=== PATIENT | female | born 1940 | race Caucasian/White ===

== ENCOUNTER 2016-12-27 12:45 | Inpatient (IN) | payer OTHER ==
[~2016-12-27] VITALS: Ht 167.6 cm; Wt 75.4 kg
--- NOTE | ~2016-12-27 | EKG ---
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
--- NOTE | ~2016-12-27 | EKG ---
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1940 Requested By: Karin Monsalve Order Number: [id number] MD: Bola Macias Measurements Intervals [place] Rate: 111 P: ND: QRS: 63 QRSD: 100 T: -85 QT: 330 QTc: 449 Interpretive Statements Atrial fibrillation Paired ventricular premature complexes Repol abnrm suggests ischemia, inferior leads Baseline wander in lead(s) I,II,aVR No previous ECG available for comparison Electronically Signed On 12-31-2016 9:08:20 CDT by Bola Macias [email or web address] <ELECTRONICALLY SIGNED> By: Bola Macias MD, FACC 12/31/16 0908 1251 1251 Bola Macias MD, [facility] /EPI
--- NOTE | ~2016-12-27 | HC ---
[facility] [place] [address] CONSULTATION Name: SUGEY ROJAS Andres Room #: 430-P [facility] IN M.R.#: [id number] Admission: 12/27/16 Attend Phys: Tye Dsouza MD Discharge: 12/31/16 Date of : 39 Report #: [id number] THIS REPORT FOR: //name// CC: Tye Holmanie Mannie REASON FOR CONSULTATION: Atrial fibrillation. 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 The patient has been having issues with recurrent altered mental status and was diagnosed with possible dementia. She has more altered yesterday and there was concern that she may have had some seizure activity. I have been asked to see her, there was some bradycardia noted on telemetry. I looked at all her telemetry, since she has been here. There was a period of time where she was in atrial fibrillation with some of in the middle of the night some of her rates were in the 30s to 40s range while she was sleeping. However, her rates are otherwise within normal limits and she is converted to sinus rhythm. She denies any chest pain. She denies shortness of breath. She denies PND or orthopnea. She denies presyncope or syncope. REVIEW OF SYSTEMS: A 12-point review of systems was performed and was negative other than I mentioned above. PAST MEDICAL HISTORY: 1. Dementia. 2. Mechanical mitral valve. 3. Hypertension. 4. Atrial fibrillation. SOCIAL HISTORY: Does not smoke. FAMILY HISTORY: Noncontributory. ALLERGIES: PENICILLIN, SULFA, CODEINE, HYDROCODONE. MEDICATIONS: Include digoxin 0.25, lisinopril 10, quetiapine, Coumadin, bisoprolol, simvastatin, Aldactone, aspirin. PHYSICAL EXAMINATION: VITAL SIGNS: Temperature is 36.4, pulse 94, respiration 14, blood pressure 140/81, sats 95%. LABORATORY DATA: White cell count is 9.5, hemoglobin 12.7, platelets 192. INR is 2.2. Troponin is negative x 2. Chemistries: Sodium 128, potassium 4.1, BUN 29, creatinine 1.2. LFTs within normal limits, albumin 3.2. Chest x-ray shows no acute process with enlarged cardiac silhouette. A CT of head, she has some [facility] [address] [place] [address] CONSULTATION Name: SUGEY ROJAS Room #: 430-P [facility]#: [id number] Admission: 12/27/16 Attend Phys: Tye Dsouza MD Discharge: 12/31/16 Date of : 39 Report #: [id number] remote prior strokes. IMPRESSION: In summary, the patient is a 76-year-old with a history of atrial fibrillation and mechanical mitral valve. Reviewing her telemetry, there is no significant bradycardia. I do not believe that any of this warrants pacemaker. In terms of her mitral valve, we will repeat echocardiogram to evaluate the valve function and as well as to evaluate her left ventricular function. We will continue to follow. <ELECTRONICALLY SIGNED> By: Juan Melton MD 01/02/17 1106 1142 1315 Juan Melton MD /nt
--- NOTE | ~2016-12-27 | EEG ---
[facility] [place] [address] ELECTROENCEPHALOGRAM Name: SUGEY ROJAS Room #: 430-P [facility] IN M.R.#: [id number] Admission: 12/27/16 Attend Phys: Tye Dsouza MD Discharge: 12/31/16 Date of : 39 Report #: [id number] THIS REPORT FOR: //name// CC: Tye Dsouza [place] DATE OF SERVICE: 12/28/2016 This patient is being evaluated for the possibility of seizure. EEG was done by placing the electrodes by standard 10-20 system of electrode placement. Both referential and sequential montages were used for recording. Background activity in this patient's EEG is about 8 Hz and 30 microvolt. It is intermixed with theta range slowing on both sides. During part of the EEG, the patient appeared to be slow asleep and that is associated with bilateral slowing on both sides. No active epileptiform activity was noted. IMPRESSION: This patient's EEG is intermixed with theta range slowing on both sides. That is a nonspecific abnormality, which can occur with encephalopathy, effect of psychotropic medication, dementia, postictal period, etc. Clinical correlation is recommended. Heart is irregular consistent with patient's history of cadiac irregularity which is being addressed as I understand Thank you very much for this referral. <ELECTRONICALLY SIGNED> By: Toribio Way MD 01/01/17 0737 1712 1820 MD chanel Jimenez
--- NOTE | ~2016-12-27 | EKG ---
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
--- NOTE | ~2016-12-27 | 2DMMODE ---
[facility] [address] [facility] [place] [address] 2 D/M-MODE ECHOCARDIOGRAM Name: SUGEY ROJAS Room #: 430-P [facility] IN [facility].#: [id number] Admission: 12/27/16 Attend Phys: Tye Dsouza, Discharge: 12/31/16 Date of : 39 Date of Service: 12/30/16 1313 Report #: [id number] THIS REPORT FOR: //name// APPROVED REPORT Study performed: 12/30/2016 12:00:29 EXAM: Comprehensive 2D, Doppler, and color-flow Echocardiogram Patient Location: Bedside Room #: 430 Status: routine BSA: 1.85 HR: 70 bpm BP: 168/79 mmHg Other Information Study Quality: Adequate Indications Atrial Fibrillation Hypertension/HDD Mechanical Mitral Valve. 2D Dimensions RVDd: 52.85 mm LVEF(%): 50.18 (>50%) IVSd: 9.94 (7-11mm) LVOT Diam: 19.75 (18-24mm) LVDd: 43.52 mm PWd: 10.24 (7-11mm) Ascending Ao: 32.55 (22-36mm) LVDs: 32.51 (25-40mm) Aortic Root: 31.21 mm IVC: 25.00 mm Robbins's LVEF: 50.18 % Volumes Left Atrial Volume (Systole) Single Plane 4CH: 149.40 mL Single Plane 2CH: 124.55 mL LA ESV Index: 81.00 mL/m2 Aortic Valve AoV Peak Kwasi.: 1.21 m/s AO Peak Gr.: 5.92 mmHg LVOT Max P.86 mmHg LVOT Max V: 0.83 m/s STEPHIE Vmax: 2.10 cm2 Mitral Valve MV Peak Gr.: 9.12 mmHg [facility] [place] [address] 2 D/M-MODE ECHOCARDIOGRAM Name: SUGEY ROJAS Room #: 430-P [facility]..#: [id number] Admission: 12/27/16 Attend Phys: Tye Dsouza, Discharge: 12/31/16 Date of : 39 Date of Service: 12/30/16 1313 Report #: [id number] MV Mean Gr.: 2.27 mmHg MV Decel. Time: 148.13 ms MV E Max Kwasi.: 1.41 m/s MV Max Kwasi.: 1.51 m/s MV Mean Kwasi.: 0.62 m/s MV VTI: 315.96 mm Pulmonary Valve PV Peak Kwasi.: 0.79 m/s PV Peak Gr.: 2.48 mmHg Tricuspid Valve TR Peak Kwasi.: 2.60 m/s RAP Estimate: 15.00 mmHg TR Peak Gr.: 27.24 mmHg PA Pressure: 42.00 mmHg Left Ventricle The left ventricle is normal size. There is normal left ventricular wall thickness. The left ventricular systolic function is normal. The left ventricular ejection fraction is within the normal range. LVEF is 50-55%. This study is not technically sufficient to allow evaluation of the LV diastolic function due to atrial fibrillation. Right Ventricle Right ventricle is dilated. The right ventricular systolic function is normal. Atria Left atrium is dilated. Right atrium is dilated. Aortic Valve The aortic valve is normal in structure. Aortic valve is calcified. No aortic regurgitation is present. There is no aortic valvular stenosis. Mitral Valve There is a mechanical mitral valve. The prosthetic mitral valve is not well visualized due to imaging artifacts from the prosthesis. There is no mitral valve regurgitation noted. Tricuspid Valve The tricuspid valve is normal in structure. There is moderate tricuspid regurgitation. The right atrial pressure is estimated at 15 mmHg. There is moderate pulmonary hypertension[place] [address] 2 D/M-MODE ECHOCARDIOGRAM Name: SUGEY ROJAS Room #: 430-P [facility]#: [id number] Admission: 12/27/16 Attend Phys: Tye Dsouza, Discharge: 12/31/16 Date of : 39 Date of Service: 12/30/16 1313 Report #: [id number] The pulmonary valve is normal in structure. Trace pulmonic regurgitation. Great Vessels The aortic root is normal in size. The inferior vena cava is dilated with no inspiratory collapse. Pericardium There is no pericardial effusion. <Conclusion> The left ventricle is normal size. LVEF is 50-55%. Right ventricle is dilated. The right ventricular systolic function is normal. Left atrium is dilated. Right atrium is dilated. The aortic valve is normal in structure. Aortic valve is calcified. There is no aortic valvular stenosis. There is a mechanical mitral valve. The prosthetic mitral valve is not well visualized due to imaging artifacts from the prosthesis. The tricuspid valve is normal in structure. There is moderate tricuspid regurgitation. The right atrial pressure is estimated at 15 mmHg. There is moderate pulmonary hypertension. The inferior vena cava is dilated with no inspiratory collapse. <ELECTRONICALLY SIGNED> By: Kuldip Rosenberg MD 12/30/16 1313 12 131 Kuldip Rosenberg MD /INF
[~2016-12-27 12:45] MED LIST: ACETAMINOPHEN325 M1 PO; ALDACTONE25 MG PO; APAP500 PO; ASPIRIN EC81 M1; ASPIRIN81 M2 PO; ATIVAN0.5 MG PO; BACTROBAN NASAL1 GM NS; BISOPROLOL FUMAR5 MG PO; CALCIUM 500 +1 EAC5 PO; CALCIUM OYSTER500 MG; CEFTIN 250 MG250 MG PO; CEPHALEXIN 500500 M2 PO; CLONIDINE0.1 PO; COLACE100 MG PO; CORTEF5 MG OR; CORTEF5 MG PO; COUMADIN 2 MG TA2 M1 PO; COUMADIN 3 MG TA3 MG PO; DEEP SEA NASAL44 M1 NASAL; DEEP SEA NASAL44 ML NS; DEPAKOTE 250MG250 M1 PO; DILTIAZEM ER120 M1 PO; DOXAZOSIN MESYLA1 MG PO; DOXAZOSIN MESYLA2 MG PO; FUROSEMIDE 20 M20 M1 PO; GLUCOPHAGE500 MG PO; LANOXIN 0.250.25 MG PO; LASIX 40 MG TAB40 M2 PO; MICARDIS40 MG OR; MIRALAX255 GM OR; NASAL SPRAY EXT30 ML NS; ONE DAILY HEAL1 EACH PO; PRINIVIL20 MG PO; RAPAFLO8 MG PO; REQUIP 1 MG TABL1 M1 PO; ZOCOR 10 MG TAB10 MG PO
[2016-12-27 12:46] VITALS: BP 121/68
[2016-12-27 13:22] LABS: HEMOGLOBIN 12.9 gm/dL (12.0-15.0); MCH 30.4 pg (26.0-34.0); MCHC 33.1 g/dL (28.0-37.0); PLATELET COUNT 222 thou/uL (150-400); RBC 4.24 mil/uL (4.20-5.00); WBC 17.3 thou/uL (4.0-11.0)
[2016-12-27 13:23] LABS: MANUAL DIFF YES
[2016-12-27 13:29] LABS: URINE BILIRUBIN NEGATIVE (Negative); URINE BLOOD 1+ (Negative); URINE COLOR YELLOW; URINE GLUCOSE-RANDOM* TRACE (Negative); URINE KETONES NEGATIVE (Negative); URINE LEUKOCYTES-REFLEX NEGATIVE (Negative); URINE PROTEIN (DIPSTICK) 2+ (Negative); URINE SPECIFIC GRAVITY >= 1.030 (1.003-1.035); URINE UROBILINOGEN 0.2 E.U./dl (0.2-1.0)
[2016-12-27 13:31] LABS: ANION GAP 13 mmol/L (7-16); BUN 32 mg/dL (7-18); CALCIUM 9.4 mg/dL (8.5-10.1); CHLORIDE 93 mmol/L (98-107); CO2 22 mmol/L (21-32); CREATININE 1.7 mg/dL (0.6-1.0); GLUCOSE 229 mg/dL (74-106); POTASSIUM 4.1 mmol/L (3.5-5.1); SODIUM 128 mmol/L (136-145)
[2016-12-27 13:35] LABS: INR 2.1
[2016-12-27 13:37] LABS: APTT 37.4 Seconds (24.5-32.8); PROTIME 21.7 Seconds (9.3-11.4)
[2016-12-27 13:39] LABS: ABSOLUTE NEUTROPHILS 14.5 thou/uL (1.4-8.2); PLATELET ESTIMATE NORMAL; TOTAL CELL COUNT 100
[2016-12-27 13:40] LABS: TROPONIN-I < 0.04 ng/mL (<0.04-0.07)
[2016-12-27 13:41] LABS: CASTS None Seen /LPF (None Seen); CRYSTALS None Seen /LPF (None Seen); SQUAMOUS 0-3 Few /LPF (0-3); URINE RBC 3-10 Few /HPF (0-2); URINE WBC-REFLEX None Seen /HPF (0-5)
[2016-12-27] MEDS ORDERED: DIGOXIN250 MCG PO (14:13)
[2016-12-27] MEDS ORDERED: LISINOPRIL10 MG PO (14:14)
[2016-12-27] MEDS ORDERED: COUMADIN 2 MG TA2 M1 PO (14:15)
[2016-12-27] MEDS ORDERED: NEURONTIN 300300 M1 PO (14:15)
[2016-12-27] MEDS ORDERED: ZOCOR20 MG PO (14:16)
[2016-12-27] MEDS ORDERED: BISOPROLOL FUMAR5 MG PO (14:17)
[2016-12-27] MEDS ORDERED: ALDACTONE50 MG PO (14:18)
[2016-12-27] MEDS ORDERED: SEROQUEL 25 MG25 M1 PO (14:18)
[2016-12-27] MEDS ORDERED: CALCIUM 500 +1 EAC5 PO (14:20)
[2016-12-27] MEDS ORDERED: ASPIR 8181 M1 PO (14:20)
[2016-12-27] MEDS ORDERED: CENTRUM SILVER1 EAC4 PO (14:21)
[2016-12-27] MEDS ORDERED: IRON325 PO (14:21)
[2016-12-27 15:31] VITALS: BP 127/73
[2016-12-27 16:08] VITALS: BP 158/67
[2016-12-27 16:40] VITALS: BP 144/73
[2016-12-27 20:00] VITALS: BP 111/62
[2016-12-28 03:20] LABS: HEMATOCRIT 32.6 % (37.0-47.0); MCH 30.7 pg (26.0-34.0); MCHC 33.4 g/dL (28.0-37.0); MCV 91.9 fL (80.0-100.0); RBC 3.55 mil/uL (4.20-5.00); RDW 13.1 % (10.5-14.5); WBC 12.3 thou/uL (4.0-11.0)
[2016-12-28 03:28] LABS: HEMOGLOBIN 10.9 gm/dL (12.0-15.0)
[2016-12-28 03:32] LABS: INR 2.3; PROTIME 22.8 Seconds (9.3-11.4)
[2016-12-28 03:38] LABS: ALBUMIN 3.2 g/dL (3.4-5.0); CALCIUM 8.1 mg/dL (8.5-10.1); CREATININE 1.2 mg/dL (0.6-1.0); POTASSIUM 4.1 mmol/L (3.5-5.1); TOTAL BILIRUBIN 0.4 mg/dL (<0.1-1.0); TOTAL PROTEIN 6.3 g/dL (6.4-8.2)
[2016-12-28 04:00] VITALS: BP 128/62
[2016-12-28 04:20] LABS: TSH 2.27 uIU/mL (0.358-3.740)
[2016-12-28 05:13] LABS: FOLIC ACID 34.5 ng/mL (8.6-58.9)
[2016-12-28 08:00] VITALS: BP 132/60
[2016-12-28 18:00] VITALS: BP 149/79
[2016-12-28 20:00] VITALS: BP 142/75
[2016-12-29 03:53] LABS: INR 2.2; PROTIME 22.7 Seconds (9.3-11.4)
[2016-12-29 05:30] VITALS: BP 148/78
[2016-12-29 08:03] VITALS: BP 140/81
[2016-12-29 11:36] LABS: HEMATOCRIT 37.9 % (37.0-47.0); HEMOGLOBIN 12.7 gm/dL (12.0-15.0); MCH 31.3 pg (26.0-34.0); MCHC 33.5 g/dL (28.0-37.0); MCV 93.3 fL (80.0-100.0); RBC 4.06 mil/uL (4.20-5.00); RDW 13.1 % (10.5-14.5); WBC 9.5 thou/uL (4.0-11.0)
[2016-12-29 11:46] LABS: CALCIUM 8.7 mg/dL (8.5-10.1); CREATININE 1.2 mg/dL (0.6-1.0)
[2016-12-29 15:45] VITALS: BP 137/81
[2016-12-29 20:00] VITALS: BP 145/80
[2016-12-30 04:30] VITALS: BP 164/87
[2016-12-30 05:10] LABS: INR 1.9; PROTIME 19.1 Seconds (9.3-11.4)
[2016-12-30 08:29] VITALS: BP 168/79
[2016-12-30 08:53] VITALS: BP 168/79
[2016-12-30 18:36] VITALS: BP 153/91
[2016-12-30 20:38] VITALS: BP 172/84
[2016-12-31 04:48] VITALS: BP 175/95
[2016-12-31 05:02] LABS: INR 1.9; PROTIME 19.1 Seconds (9.3-11.4)
[2016-12-31 08:00] VITALS: BP 169/93
[2016-12-31 12:07] LABS: ALPHA TOCOPHEROL 14.2 mg/L (6.5-21.5)
[2016-12-31] MEDS ORDERED: COUMADIN 5 MG TA5 M1 PO (15:03)
[2016-12-31] MEDS ORDERED: ENOXAPARIN80 MG/0.1 SUBQ (15:04)
[2016-12-31] MEDS ORDERED: KEPPRA 500 MG500 M1 PO (15:06)
== END 2016-12-31 16:13 | DRG 682 ==
LOC: ER 12:45 → 4E 15:17 → EROBS 15:17 → 4E 16:11
PROVIDERS: Emergency Medicine; Internal Medicine; Psychiatry & Neurology Neurology
DX: N17.9 Acute kidney failure, unspecified (principal); G93.40 Encephalopathy, unspecified; E87.1 Hypo-osmolality and hyponatremia; R56.9 Unspecified convulsions; G31.83 Neurocognitive disorder with Lewy bodies; G30.9 Alzheimer's disease, unspecified; F01.50 Vascular dementia, unspecified severity, without behavioral disturbance, psychotic disturbance, mood disturbance, and anxiety; F02.80 Dementia in other diseases classified elsewhere, unspecified severity, without behavioral disturbance, psychotic disturbance, mood disturbance, and anxiety; Z66 Do not resuscitate; G25.81 Restless legs syndrome; I10 Essential (primary) hypertension; I48.91 Unspecified atrial fibrillation; Z95.2 Presence of prosthetic heart valve; Z90.710 Acquired absence of both cervix and uterus; Z79.01 Long term (current) use of anticoagulants; Z87.891 Personal history of nicotine dependence; Z79.899 Other long term (current) drug therapy; Z88.0 Allergy status to penicillin; Z88.2 Allergy status to sulfonamides; Z88.5 Allergy status to narcotic agent; Z88.8 Allergy status to other drugs, medicaments and biological substances
CPT/HCPCS: 10183

== ENCOUNTER 2017-01-02 11:46 | Inpatient (IN) | payer OTHER ==
[2017-01-02] VITALS (24 sets, daily range): BP systolic 92–129; BP diastolic 39–89
[~2017-01-02] VITALS: Ht 165.1 cm; Wt 82.8 kg
--- NOTE | ~2017-01-02 | HC ---
[facility] [place] [address] CONSULTATION Name: SUGEY ROJAS Andres Room #: 243-P [facility] IN .R.#: [id number] Admission: 01/02/17 Attend Phys: Cralos Alberto Hernandez MD Discharge: Date of : 39 Report #: [id number] THIS REPORT FOR: //name// CC: BURT Hernandez DATE OF SERVICE: 01/02/2017 REASON FOR CONSULTATION: Anemia and mechanical heart valve, on anticoagulation. HISTORY OF PRESENT ILLNESS: The patient is a 76-year-old female who has a history of mechanical mitral valve as well as atrial fibrillation who I recently saw when she was hospitalized for some altered mental status. At that time, she was having episodes of atrial fibrillation with variable rates and some bradycardia. As such, I recommended discontinuing her digoxin and continuing with beta esthela therapy. Prior to discharge, she was noted to be supratherapeutic on her INR at 1.9, so I obtained a pharmacy consult and have them up her dose. I also recommended that she be bridged with Lovenox until she was within therapeutic range of 2.5-3.5. She presented back to the hospital yesterday with increased fatigue and found to be anemic and a CT scan of the abdomen shows that she has abdominal wall hematoma, which is likely from the Lovenox shots. I was asked to see her for further evaluation. PAST MEDICAL HISTORY: 1. Mechanical mitral valve, on warfarin. 2. Atrial fibrillation. 3. Hypertension. SOCIAL HISTORY: Not a smoker. FAMILY HISTORY: Noncontributory. ALLERGIES: Reviewed. MEDICATIONS: Reviewed. REVIEW OF SYSTEMS: GENERAL: No fevers or chills. HEENT: No blurred vision. CARDIOVASCULAR: No chest pain. PULMONARY: No productive cough. GASTROINTESTINAL: No nausea or vomiting. She has abdominal wall tenderness at the site of prior injections. GENITOURINARY: No dysuria. MUSCULOSKELETAL: No myalgias or arthralgias. ENDOCRINE: No heat or cold intolerance. [facility] [address] [place] [address] CONSULTATION Name: SUGEY ROJAS Andres Room #: [address] [place] [address] [place] [facility].#: [id number] Admission: 01/02/17 Attend Phys: Carlos Alberto Hernandez MD Discharge: Date of : 39 Report #: [id number] NEUROLOGIC: No focal weakness. PHYSICAL EXAMINATION: VITAL SIGNS: Temperature 36.6, pulse 82, respirations 18, blood pressure 106/43, and sats 99%. GENERAL: She is in no acute distress, alert and oriented x3. HEENT: Oropharynx clear. NECK: Supple. No thyromegaly. HEART: Irregularly irregular with no murmurs, rubs or gallops. LUNGS: Clear to auscultation bilaterally. ABDOMEN: Soft, nontender, nondistended with no hepatosplenomegaly. There is some tenderness in the left quadrant. There is an area of tightness there, which is likely where the hematoma is located, but there is no ecchymosis noted EXTREMITIES: There is no clubbing, cyanosis, or edema. NEUROLOGIC: Cranial nerves 2-12 are intact. LABS: Sodium 126, potassium 4.6, BUN 26, and creatinine 1.8. Troponin is normal. Coags: INR was 2.1. PTT was 59.5. Hemoglobin was 5.9. Platelets were 225. ASSESSMENT: 1. Symptomatic anemia secondary to intraabdominal bleed, likely related to the Lovenox shots causing trauma. 2. Mechanical mitral valve. 3. Hypercoagulable state. 4. Atrial fibrillation. 5. Acute renal failure. In summary, the patient is a 76-year-old with AFib, mechanical mitral valve, presenting with an abdominal wall hematoma, which is likely due to the Lovenox shots. Obviously, we will stop the Lovenox shots and we recommend transfusing as needed. In terms of her INR, it is only 2.1 and I am not in favor reversing this as we are at some risk of mitral valve thrombosis. If INR starts to rise, then perhaps some oral vitamin K can be used. In terms of her AFib, we will continue with her rate control medications and we will continue to follow. By: 1033 1258 Juan Melton MD /nt
--- NOTE | ~2017-01-02 | HC ---
[facility] [place] [address] CONSULTATION Name: CRYSTALSUGEY Andres Room #: 243-P [facility] IN ..#: [id number] Admission: 01/02/17 Attend Phys: Carlos Alberto Hernandez MD Discharge: 01/08/17 Date of : 39 Report #: [id number] THIS REPORT FOR: //name// CC: BURT MYKE Hernandez DATE OF SERVICE: 01/03/2017 HISTORY OF PRESENT ILLNESS: I have been asked to evaluate this 76-year-old lady who presented back to the hospital with worsening abdominal pain and a drop of her hemoglobin to 5.9 at the time of admission. More recently, the patient had been hospitalized. She was in atrial fibrillation with hypertension and has a mechanical aortic valve. The patient had been placed on Coumadin and increasing daily to 5 mg daily and with Lovenox bridging of 80 mg b.i.d. at her nursing facility. She returned complaining of worsening abdominal pain and discomfort without any change in gastrointestinal function. She denies vomiting. The patient by CT scanning has a developing large left retroperitoneal hematoma. PAST MEDICAL HISTORY: Consistent with Lewy's body dementia, hypertension, mitral valve replacement, atrial fibrillation, hysterectomy, tonsillectomy and possible early-onset diabetes. MEDICATIONS: The patient takes multiple medications: Lisinopril, Zocor, gabapentin, aspirin 81 mg daily, spironolactone and multivitamins. She is on digoxin as well as Coumadin 5 mg daily. ALLERGIES: Reported are CODEINE, HYDROCODONE, PENICILLIN and SULFA. SOCIAL HISTORY: . Daughter and at the bedside reports to Dr. 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 SOCIAL HISTORY: She quit smoking greater than one year ago, smoked half pack of cigarettes for 30 years. Does not use alcohol. REVIEW OF SYSTEMS: A 10-point review of systems essentially noncontributory except for the worsening abdominal pain. PHYSICAL EXAMINATION: GENERAL: Reveals a lady who is resting comfortably in the ICU. VITAL SIGNS: Stable. HEENT: Pupils equal, round and reactive to light. NEUROLOGICAL: She is alert, conversant. Daughter at the bedside. LUNGS: Clear at the bases bilaterally. CARDIOVASCULAR: Irregular rhythm. ABDOMEN: Marked distention in the left with a mass-like effect in the left lower abdomen. [facility] [address] [place] [address] CONSULTATION Name: SUGEY ROJAS Room #: 243-P [facility] IN M.R.#: [id number] Admission: 01/02/17 Attend Phys: Carlos Alberto Hernandez MD Discharge: 01/08/17 Date of : 39 Report #: [id number] RECTAL: Not performed. DIAGNOSTIC IMPRESSION: Large left retroperitoneal hematoma, no surgical therapy is indicated and I would correct the coagulation disorder and consider the possibility of Interventional Radiology for embolization of the inferior epigastric artery and if there is worsening in progressing. Only indication for operation is breaking through into the intraperitoneal free space. This is not present on the recent completed CT scan. Followup is indicated. Thank you for allowing us to participate in her care. By: 1633 0230 Cruzito Campuzano MD, FACS /nt
--- NOTE | ~2017-01-02 | HC ---
[facility] [place] [address] CONSULTATION Name: SUGEY ROJAS Andres Room #: 243-P [facility] IN .R.#: [id number] Admission: 01/02/17 Attend Phys: Carlos Alberto Hernandez MD Discharge: Date of : 39 Report #: [id number] THIS REPORT FOR: //name// CC: BURT Hernandez DATE OF SERVICE: 01/04/2017 REASON FOR CONSULTATION: Hyponatremia and elevated creatinine. HISTORY OF PRESENT ILLNESS: This 76-year-old patient was recently discharged 5 days ago after a hospitalization for confusion. At that time, she had a mild increase in her serum creatinine and was hospitalized for several days and discharged on 12/31/2016. At that time, her serum creatinine level had risen to 1.7 from a baseline that appears to be closer to 0.8 or 1. She was now readmitted after a massive left abdominal wall spontaneous hematoma with retroperitoneal extension and hypotension. Creatinine jsesica back up from 1.2 to 1.8 again, now down to 1.3. Since hospitalization, the serum sodium has dropped from a level of 136 last admission down to 126 and now 120, and Renal consultation is called. 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 She has chronic atrial fibrillation. Past medical history also includes intermittent episodes of confusion, possibly psychiatric in nature, also with a possible diagnosis of Lewy body dementia, and it is unclear as to how that diagnosis was made. There was a question of seizure-like activity as well. She also has some glucose intolerance, history of hypertension as well as a prior hysterectomy. DISCHARGE MEDICATIONS FROM THAT RECENT HOSPITALIZATION: Included aspirin, lisinopril 10 mg daily, gabapentin 300 mg daily, simvastatin 20 mg daily, bisoprolol 5 mg daily, Seroquel 25 mg p.r.n., calcium carbonate, iron, multiple vitamins and both Lovenox and warfarin as well as Keppra 500 mg twice daily. SOCIAL HISTORY: Not a cigarette smoker. FAMILY HISTORY: Please refer to old charts. REVIEW OF SYSTEMS: GENERAL: She says she is feeling okay today. She feels a little bit swollen. EYES: Her vision is okay. ENT: Hearing okay. Swallows okay. Denies mouth ulcers. ENDOCRINE: Glucose intolerance as mentioned. RESPIRATORY: She denies shortness of breath or pleuritic pain. CARDIAC: Denies angina. Does get leg swelling on occasion. Has been on [facility] [address] [place] [address] CONSULTATION Name: SUGEY ROJAS Room #: [facility] IN [facility]#: [id number] Admission: 01/02/17 Attend Phys: Carlos Alberto Hernandez MD Discharge: Date of : 39 Report #: [id number] chronic diuretics. GASTROINTESTINAL: Appetite has been fair to poor. GENITOURINARY: Denies dysuria or hematuria. NEUROLOGICAL: She has had the spells as mentioned intermittently with confusion and possible seizure, and she returns to fairly normal mental status in between. PHYSICAL EXAMINATION: GENERAL: This is a reasonably well-appearing, comfortable patient in no distress or discomfort. SKIN: Reasonably good turgor. HEENT: Extraocular movements are full. Vision is intact. Hearing is intact. Mucous membranes are moist. Tongue and buccal mucosa benign. NECK: Veins are flat. CHEST: Shows a couple of rhonchi at the right base. HEART: Irregular and tachycardic. ABDOMEN: Shows a very dense swollen mass, very tender, very firm and hard in the mid and left lower abdomen. EXTREMITIES: Show no edema. ASSESSMENT AND PLAN: 1. Acute kidney injury. Creatinine is up. Her bladder is being somewhat compressed, and some obstructive component may be at work here. We will have to be watchful and may have to do a renal sonogram, and possibly even decompression might be indicated. We will watch her creatinine carefully. 2. Hyponatremia. She has had poor p.o. intake. We are doing an assessment of her urinary sodium, creatinine and osmolarity, which will be of some help. She is not on any particular medications that would predispose the hyponatremia. There may be a component of syndrome of inappropriate antidiuretic hormone from her central nervous system disease. I do not see any pulmonary disease that would be responsible, and it does not look like she has gotten hypotonic fluids, although it is not entirely easy to tell. 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 4. Large intraabdominal and retroperitoneal hematoma. 5. Atrial fibrillation with rapid ventricular rate. 6. Intermittent confusion episode. <ELECTRONICALLY SIGNED> By: Armani Vargas MD 01/07/17 1144 0915 0044 Armani Vargas MD /nt
[~2017-01-02 11:46] MED LIST changes: +ALDACTONE50 MG PO; +ASPIR 8181 M1 PO; +CENTRUM SILVER1 EAC4 PO; +COUMADIN 5 MG TA5 M1 PO; +DIGOXIN250 MCG PO; +ENOXAPARIN80 MG/0.1 SUBQ; +IRON325 PO; +KEPPRA 500 MG500 M1 PO; +LISINOPRIL10 MG PO; +NEURONTIN 300300 M1 PO; +SEROQUEL 25 MG25 M1 PO; +ZOCOR20 MG PO
[2017-01-02] MEDS ORDERED: ENOXAPARIN80 MG/0.1 SUBQ (11:57)
[2017-01-02] MEDS ORDERED: ALDACTONE25 MG PO (11:57)
[2017-01-02 12:31] LABS: MCH 30.9 pg (26.0-34.0); MCHC 33.4 g/dL (28.0-37.0); MCV 92.5 fL (80.0-100.0); PLATELET COUNT 225 thou/uL (150-400); RBC 1.91 mil/uL (4.20-5.00); RDW 13.1 % (10.5-14.5); WBC 26.1 thou/uL (4.0-11.0)
[2017-01-02 12:32] LABS: MANUAL DIFF YES
[2017-01-02 12:34] LABS: HEMOGLOBIN 5.9 gm/dL (12.0-15.0)
[2017-01-02 12:35] LABS: HEMATOCRIT 17.7 % (37.0-47.0)
[2017-01-02 12:45] LABS: INR 2.1
[2017-01-02 12:47] LABS: APTT 59.5 Seconds (24.5-32.8); PROTIME 20.8 Seconds (9.3-11.4)
[2017-01-02 13:04] LABS: METAMYELOCYTES 1 %; TOTAL CELL COUNT 100
[2017-01-02 13:06] LABS: ABSOLUTE NEUTROPHILS 21.7 thou/uL (1.4-8.2); ANISOCYTOSIS SLIGHT; MYELOCYTES 1 %; POLYCHROMASIA OCCASIONAL
[2017-01-02 13:44] LABS: ANION GAP 11 mmol/L (7-16); BUN 29 mg/dL (7-18); CALCIUM 8.8 mg/dL (8.5-10.1); CHLORIDE 94 mmol/L (98-107); CO2 21 mmol/L (21-32); CREATININE 1.8 mg/dL (0.6-1.0); GLUCOSE 162 mg/dL (74-106); POTASSIUM 4.6 mmol/L (3.5-5.1); SODIUM 126 mmol/L (136-145)
[2017-01-02 13:45] LABS: TROPONIN-I < 0.04 ng/mL (<0.04-0.07)
[2017-01-02 14:16] LABS: URINE BILIRUBIN NEGATIVE (Negative); URINE BLOOD TRACE (Negative); URINE GLUCOSE-RANDOM* NEGATIVE (Negative); URINE KETONES NEGATIVE (Negative); URINE NITRITE NEGATIVE (Negative); URINE PROTEIN (DIPSTICK) 2+ (Negative); URINE SPECIFIC GRAVITY >= 1.030 (1.003-1.035); URINE UROBILINOGEN 0.2 E.U./dl (0.2-1.0)
[2017-01-02 14:19] LABS: URINE COLOR YELLOW
[2017-01-02 14:28] LABS: HYALINE CASTS 0-3 Few /LPF (None Seen); SQUAMOUS 0-3 Few /LPF (0-3); URINE WBC 0-5 Rare /HPF (0-5)
[2017-01-02 14:29] LABS: AMORPHOUS URATES Moderate /LPF (None Seen); BACTERIA 1-9 Few /HPF (None Seen); URINE RBC 0-2 Rare /HPF (0-2)
[2017-01-03] VITALS (40 sets, daily range): BP systolic 100–159; BP diastolic 51–130
[2017-01-03 01:11] LABS: GLYCOHEMOGLOBIN (HGB A1C) 6.6 % (4.8-5.6)
[2017-01-03 01:17] LABS: HEMATOCRIT 22.3 % (37.0-47.0); HEMOGLOBIN 7.7 gm/dL (12.0-15.0); MCH 31.2 pg (26.0-34.0); MCHC 34.6 g/dL (28.0-37.0); MCV 90.4 fL (80.0-100.0); PLATELET COUNT 195 thou/uL (150-400); RBC 2.46 mil/uL (4.20-5.00); RDW 13.6 % (10.5-14.5); WBC 25.8 thou/uL (4.0-11.0)
[2017-01-03 01:25] LABS: MANUAL DIFF YES
[2017-01-03 02:24] LABS: ABSOLUTE NEUTROPHILS 21.4 thou/uL (1.4-8.2); METAMYELOCYTES 1 %; NUCLEATED RBCS 1 /100WBC; TOTAL CELL COUNT 100
[2017-01-03 06:09] LABS: HEMATOCRIT 20.6 % (37.0-47.0); HEMOGLOBIN 7.2 gm/dL (12.0-15.0)
[2017-01-03 06:23] LABS: CALCIUM 8.5 mg/dL (8.5-10.1); CREATININE 1.3 mg/dL (0.6-1.0); MAGNESIUM 1.1 mg/dL (1.8-2.4); POTASSIUM 4.3 mmol/L (3.5-5.1)
[2017-01-03 06:25] LABS: PROTIME 36.5 Seconds (9.3-11.4)
[2017-01-03 06:39] LABS: INR 3.6
[2017-01-03 16:48] LABS: HEMATOCRIT 24.1 % (37.0-47.0); HEMOGLOBIN 8.5 gm/dL (12.0-15.0)
[2017-01-03 22:25] LABS: HEMATOCRIT 23.7 % (37.0-47.0); HEMOGLOBIN 8.3 gm/dL (12.0-15.0)
[2017-01-04] VITALS (25 sets, daily range): BP systolic 78–147; BP diastolic 48–104
[2017-01-04 05:27] LABS: HEMATOCRIT 22.2 % (37.0-47.0); HEMOGLOBIN 7.9 gm/dL (12.0-15.0); MCH 32.6 pg (26.0-34.0); MCHC 35.7 g/dL (28.0-37.0); MCV 91.1 fL (80.0-100.0); RBC 2.44 mil/uL (4.20-5.00); RDW 13.6 % (10.5-14.5); WBC 34.6 thou/uL (4.0-11.0)
[2017-01-04 05:40] LABS: CALCIUM 8.3 mg/dL (8.5-10.1); CREATININE 1.3 mg/dL (0.6-1.0); POTASSIUM 4.4 mmol/L (3.5-5.1)
[2017-01-04 08:52] LABS: INR 1.3; PROTIME 13.2 Seconds (9.3-11.4)
[2017-01-04 12:48] LABS: HEMOGLOBIN 7.7 gm/dL (12.0-15.0)
[2017-01-05] VITALS (33 sets, daily range): BP systolic 95–120; BP diastolic 41–82
[2017-01-05 05:14] LABS: HEMOGLOBIN 6.5 gm/dL (12.0-15.0); MCH 31.6 pg (26.0-34.0); RBC 2.07 mil/uL (4.20-5.00)
[2017-01-05 05:15] LABS: MCHC 34.3 g/dL (28.0-37.0); MCV 91.9 fL (80.0-100.0); RDW 14.1 % (10.5-14.5); WBC 26.7 thou/uL (4.0-11.0)
[2017-01-05 05:29] LABS: ALBUMIN 2.3 g/dL (3.4-5.0); CALCIUM 8.1 mg/dL (8.5-10.1); CREATININE 1.3 mg/dL (0.6-1.0); PHOSPHORUS 3.2 mg/dL (2.5-4.9); POTASSIUM 4.2 mmol/L (3.5-5.1)
[2017-01-05 05:30] LABS: PROTIME 11.2 Seconds (9.3-11.4)
[2017-01-05 05:33] LABS: INR 1.1
[2017-01-06] VITALS (25 sets, daily range): BP systolic 73–138; BP diastolic 47–74
[2017-01-06 05:18] LABS: HEMATOCRIT 21.5 % (37.0-47.0); HEMOGLOBIN 7.3 gm/dL (12.0-15.0); MCH 31.7 pg (26.0-34.0); MCV 93.1 fL (80.0-100.0); RBC 2.31 mil/uL (4.20-5.00); RDW 14.1 % (10.5-14.5); WBC 20.4 thou/uL (4.0-11.0)
[2017-01-06 05:34] LABS: INR 1.1; PROTIME 10.9 Seconds (9.3-11.4)
[2017-01-06 05:45] LABS: ALBUMIN 2.1 g/dL (3.4-5.0); CALCIUM 7.9 mg/dL (8.5-10.1); CREATININE 0.8 mg/dL (0.6-1.0); PHOSPHORUS 2.2 mg/dL (2.5-4.9); POTASSIUM 3.9 mmol/L (3.5-5.1)
[2017-01-06 18:32] LABS: HEMATOCRIT 22.3 % (37.0-47.0); HEMOGLOBIN 7.6 gm/dL (12.0-15.0)
[2017-01-07] VITALS (22 sets, daily range): BP systolic 107–138; BP diastolic 49–104
[2017-01-07 04:21] LABS: HEMATOCRIT 25.2 % (37.0-47.0); HEMOGLOBIN 8.4 gm/dL (12.0-15.0); MCH 31.5 pg (26.0-34.0); MCHC 33.1 g/dL (28.0-37.0); MCV 95.1 fL (80.0-100.0); RBC 2.65 mil/uL (4.20-5.00); RDW 14.2 % (10.5-14.5); WBC 22.7 thou/uL (4.0-11.0)
[2017-01-07 04:28] LABS: ALBUMIN 2.4 g/dL (3.4-5.0); CALCIUM 8.4 mg/dL (8.5-10.1); CREATININE 0.7 mg/dL (0.6-1.0); PHOSPHORUS 2.2 mg/dL (2.5-4.9); POTASSIUM 3.9 mmol/L (3.5-5.1)
[2017-01-07 04:35] LABS: PROTIME 10.6 Seconds (9.3-11.4)
[2017-01-08] VITALS (15 sets, daily range): BP systolic 98–134; BP diastolic 46–83
[2017-01-08 04:24] LABS: ALBUMIN 2.4 g/dL (3.4-5.0); CALCIUM 8.6 mg/dL (8.5-10.1); CREATININE 0.7 mg/dL (0.6-1.0); PHOSPHORUS 2.7 mg/dL (2.5-4.9); POTASSIUM 3.7 mmol/L (3.5-5.1)
[2017-01-08 04:27] LABS: INR 1.3; PROTIME 13.1 Seconds (9.3-11.4)
[2017-01-08 08:56] LABS: HEMATOCRIT 25.1 % (37.0-47.0); HEMOGLOBIN 8.5 gm/dL (12.0-15.0); MCH 32.2 pg (26.0-34.0); MCHC 34.1 g/dL (28.0-37.0); MCV 94.4 fL (80.0-100.0); RBC 2.65 mil/uL (4.20-5.00); RDW 14.3 % (10.5-14.5); WBC 18.2 thou/uL (4.0-11.0)
[2017-01-08 09:00] LABS: MANUAL DIFF YES; PLATELET COUNT 346 thou/uL (150-400)
[2017-01-08 09:35] LABS: HYPOCHROMASIA 1+; METAMYELOCYTES 1 %; MYELOCYTES 1 %; PLATELET ESTIMATE M; POLYCHROMASIA 1+; TOTAL CELL COUNT 100
== END 2017-01-08 15:46 | disposition short-term general hospital (02) | DRG 393 ==
LOC: ER 11:46 → ICU 13:37 → EROBS 13:37 → ICU 13:50
PROVIDERS: Emergency Medicine; Family Medicine; Hospitalist; Internal Medicine Cardiovascular Disease; Internal Medicine Nephrology; Nurse Practitioner; Nurse Practitioner Family; Nurse Practitioner Gerontology; Physician Assistant
PROC: 30233N1 Transfusion of Nonautologous Red Blood Cells into Peripheral Vein, Percutaneous Approach (ICD-10-PCS; principal; 2017-01-02)
DX: K66.1 Hemoperitoneum (principal); N17.1 Acute kidney failure with acute cortical necrosis; D62 Acute posthemorrhagic anemia; E44.0 Moderate protein-calorie malnutrition; E87.1 Hypo-osmolality and hyponatremia; I50.9 Heart failure, unspecified; I11.0 Hypertensive heart disease with heart failure; G31.83 Neurocognitive disorder with Lewy bodies; F02.80 Dementia in other diseases classified elsewhere, unspecified severity, without behavioral disturbance, psychotic disturbance, mood disturbance, and anxiety; I48.91 Unspecified atrial fibrillation; E83.51 Hypocalcemia; E11.9 Type 2 diabetes mellitus without complications; E78.5 Hyperlipidemia, unspecified; Z95.2 Presence of prosthetic heart valve; Z88.0 Allergy status to penicillin; Z88.2 Allergy status to sulfonamides; Z88.6 Allergy status to analgesic agent; Z68.30 Body mass index [BMI] 30.0-30.9, adult; Z90.710 Acquired absence of both cervix and uterus; Z87.891 Personal history of nicotine dependence
CPT/HCPCS: 10078; 27001